=== PATIENT | female | born 1955 ===

== ENCOUNTER 2019-01-22 23:52 | Observation (INO) | payer MEDICAID ==
[2019-01-23] MEDS ORDERED: Nitroglycerin 2% Ointment Foilpak UD TOP STA (00:23)
[2019-01-23] MEDS ORDERED: Aspirin 325 mg EC Tablets PO STA (00:23)
--- NOTE | 2019-01-23 00:24 | C.PDOC ---
History Of Present Illness 63 year old female presents with chest pain since PC [employer]ATION [employer]INE[employer]. Patient states "it happens when my pressure is high". She also reports midsterna/epigastric "burning". Denies any other symptoms. Patient is compliant with her medications. She had similar prior episode 2 months ago, states her HTN medications had to be adjusted. Baseline SBP 115. CP SINCE PC INSTALLATION ENGINEER. "IT HAPPENS WHEN MY PRESSURE IS HIGH". MIDSTERNAL/EPIG "BURNING". NO OTHER ASSOC SX. COMPLIANT W MEDS. SIM PRIOR EPISODE 2 MO AGO, PS HTN MEDS HAD TO BE ADJUSTED. BASELINE SBP 115 EXAM 160/75 CV RRR NEG Time Seen by Provider: 01/23/19 00:11 Chief Complaint (Nursing): High Blood Pressure History Per: Patient History/Exam Limitations: no limitations Onset/Duration Of Symptoms: Hrs Current Symptoms Are (Timing): Still Present Associated Symptoms: denies: Nausea, Dyspnea, Diaphoresis, Syncope Exacerbating Factors: None Alleviating Factors: None Recent travel outside of the [place]: No Past Medical History Reviewed: Historical Data, Nursing Documentation, Vital Signs Vital Signs: Last Vital Signs Temp 98.4 F 01/22/19 23:56 Pulse 80 01/22/19 23:56 Resp 18 01/22/19 23:56 BP 172/77 H 01/22/19 23:56 Pulse Ox 100 01/22/19 23:56 Primary Care Provider: FAMILY PROVIDER,NO - Medical History PMH: HTN Family History: States: Unknown Family Hx - Social History Hx Alcohol Use: No Hx Substance Use: No - Immunization History Hx Tetanus Toxoid Vaccination: No Hx Influenza Vaccination: No Hx Pneumococcal Vaccination: No Review Of Systems Except As Marked, All Systems Reviewed And Found Negative. Cardiovascular: Positive for: Chest Pain Gastrointestinal: Negative for: Nausea, Vomiting Physical Exam - Physical Exam Appears: Non-toxic Skin: Normal Color, Warm Head: Atraumatic, Normacephalic Eye(s): bilateral: Normal Inspection, PERRL, EOMI Oral Mucosa: Moist Neck: Normal, Supple Chest: Symmetrical, No Tenderness Cardiovascular: Rhythm Regular, Other (BP 160/75) Respiratory: Normal Breath Sounds, No Rales, No Rhonchi, No Wheezing Gastrointestinal/Abdominal: Soft, No Tenderness Neurological/Psych: Oriented x3, Normal Speech Gait: Steady ED Course And Treatment ECG: Interpreted By Me, Viewed By Me ECG Rhythm: Sinus Rhythm ECG Interpretation: Normal Rate From EC O2 Sat by Pulse Oximetry: 100 (Room air) Pulse Ox Interpretation: Normal - Radiology CXR: Interpreted by Me CXR Interpretation: Yes: No Acute Disease Progress - Data Reviewed Data Reviewed: Lab, Diagnostic imaging, EKG Medical Decision Making Medical Decision Making: Plan: * EKG * Blood work * CXR * Aspirin * Nitrobid * Nitrostat Disposition Counseled Patient/Family Regarding: Studies Performed, Diagnosis - Disposition Disposition Time: 01:00 Condition: STABLE Forms: Couchsurfing ([place]) - Clinical Impression Clinical Impression: Chest pain - Scribe Statement The provider has reviewed the documentation as recorded by the Scribe Robby eKane All medical record entries made by the Scribe were at my direction and personally dictated by me. I have reviewed the chart and agree that the record accurately reflects my personal performance of the history, physical exam, medical decision making, and the department course for this patient. I have also personally directed, reviewed, and agree with the discharge instructions and disposition. Physician Patient Turnover Patient Signed Over To: Norma Kilgore Handoff Comments: [facility], DISPO
[2019-01-23] MEDS ORDERED: Nitroglycerin 2% Ointment Foilpak UD TOP ONE (00:35)
[2019-01-23 01:13] LABS: BASO # 0.1 K/uL (0.0-0.2); BASO % 0.8 % (0.0-2.0); EOS # 0.2 K/uL (0.0-0.7); EOS % 2.8 % (0.0-4.0); LYMPH # 3.4 K/uL (1.0-4.3); LYMPH % 48.2 % (20.0-40.0); MEAN CELL VOLUME 85.2 fL (81.0-99.0); MEAN CORPUSCULAR HEMOGLOBIN 30.8 pg (27.0-31.0); MEAN CORPUSCULAR HGB CONC 36.1 g/dL (33.0-37.0); MEAN PLATELET VOLUME 7.5 fL (7.2-11.7); MONO % 14.7 % (0.0-10.0); NEUT # 2.3 K/uL (1.8-7.0); NEUT % 33.5 % (50.0-75.0); NRBC % 0.2 % (0.0-2.0); RBC 4.33 Mil/uL (3.80-5.20); RED CELL DISTRIBUTION WIDTH 13.7 % (11.5-14.5)
[2019-01-23 01:24] LABS: HEMOGLOBIN 13.3 g/dL (11.0-16.0)
[2019-01-23 01:31] LABS: ALB/GLOB RATIO 1.3 (1.0-2.1); ALBUMIN 4.7 g/dL (3.5-5.0); ALT/SGPT 22 U/L (9-52); AST/SGOT 49 U/L (14-36); BLOOD UREA NITROGEN 16 mg/dL (7-17); CALCIUM 9.5 mg/dl (8.6-10.4); GFR NON-AFRICAN AMERICAN > 60
[2019-01-23] MEDS ORDERED: Potassium Chloride 20 mEq ER Tab PO STA (02:44)
[2019-01-23] MEDS ORDERED: Potassium Chloride 20 mEq ER Tab PO ONE ×2 (03:09→06:00)
[2019-01-23] MEDS ORDERED: Potassium Chloride 20 mEq 100 ML ONE (03:10)
--- NOTE | 2019-01-23 03:34 | CP.PCM.HP ---
<Solomon Trujillo - Last Filed: 01/23/19 06:10> History of Present Illness - History of Present Illness History of Present Illness: 63F PMHx of HTN presents with a 1 days history of instense burning Left sided non reproducible, non radiating chest pain. Happened this morning, worst she has ever felt, took a plavix and come to the ER. Pt says this happens sometimes when her BP goes high. Pt just moved here from [facility] where she used to follow up with a doctor who prescribed her Plavix 75mg daily and Gina D. Pt says this ch4est pain happens about 3x a year, and always feels like heat/burning. Pt also reports epigastric discomfort that is chronic and worse at nightime. Pt has had HTN for a very long time. Pt has improved greatly since ED gave nitro. ROS POS+ CP, HTN, epigastric pain, leg pain chronic, recent travel (flew here from [place]) NEG- SOB, [place], [place], [place], Radiating pains, syncope PMHx: HTN PSx: denies FH: Mom HTN SocHx: denies ETOH, Smoking, drugs Allergies: denies Home Rx Gina D Plavix 75mg daily Present on Admission - Present on Admission Any Indicators Present on Admission: No Review of Systems - Review of Systems All systems: reviewed and no additional remarkable complaints except (as per HPI) Past Patient History - Past Social History Smoking Status: Former Smoker - CARDIAC Hx Hypertension: Yes - PSYCHIATRIC Hx Substance Use: No - SURGICAL HISTORY Hx Breast Biopsy: Yes Other/Comment: Bilateral breast cyst removal 1992 - ANESTHESIA Hx Anesthesia: Yes Hx Anesthesia Reactions: No Hx Malignant Hyperthermia: No Meds Allergies/Adverse Reactions: Allergies Allergy/AdvReac Type Severity Reaction Status Date / Time No Known Allergies Allergy Verified 01/23/19 00:06 Physical Exam - Constitutional Appears: Well, No Acute Distress - Head Exam Head Exam: ATRAUMATIC - Eye Exam Eye Exam: EOMI, Normal appearance, PERRL - ENT Exam ENT Exam: Mucous Membranes Moist - Neck Exam Neck exam: Negative for: Thyromegaly - Respiratory Exam Respiratory Exam: Clear to Auscultation Bilateral, NORMAL BREATHING PATTERN - Cardiovascular Exam Cardiovascular Exam: RRR, +S1, +S2 - GI/Abdominal Exam GI & Abdominal Exam: Normal Bowel Sounds, Soft - Rectal Exam Rectal Exam: NORMAL INSPECTION - Neurological Exam Neurological exam: Alert, CN II-XII Intact, Oriented x3 - Psychiatric Exam Psychiatric exam: Normal Affect, Normal Mood - Skin Skin Exam: Dry, Normal Color, Warm Results - Vital Signs Recent Vital Signs: Last Vital Signs Temp 98.4 F 01/22/19 23:56 Pulse 98 H 01/23/19 03:18 Resp 18 01/23/19 03:18 BP 130/67 01/23/19 03:18 Pulse Ox 99 01/23/19 03:18 - Labs Result Diagrams: 01/23/19 01:03 01/23/19 02:14 Labs: Laboratory Results - last 24 hr 01/23/19 01/23/19 01/23/19 01:03 01:03 02:14 WBC 7.0 RBC 4.33 Hgb 13.3 Hct 36.9 MCV 85.2 MCH 30.8 MCHC 36.1 RDW 13.7 Plt Count 417 H MPV 7.5 Neut % (Auto) 33.5 L Lymph % (Auto) 48.2 H [place] % (Auto) 14.7 H Eos % (Auto) 2.8 Baso % (Auto) 0.8 Neut # (Auto) 2.3 Lymph # (Auto) 3.4 [place] # (Auto) 1.0 H Eos # (Auto) 0.2 Baso # (Auto) 0.1 Sodium 137 Potassium 2.5 L* 2.6 L Chloride 91 L Carbon Dioxide 32 H Anion Gap 16 BUN 16 Creatinine 0.6 L Est GFR ( Amer) > 60 Est GFR (Non-Af Amer) > 60 Random Glucose 107 H Calcium 9.5 Total Bilirubin 0.4 AST 49 H ALT 22 Alkaline Phosphatase 150 H Troponin I < 0.0120 Total Protein 8.3 Albumin 4.7 Globulin 3.6 Albumin/Globulin Ratio 1.3 Assessment & Plan - Assessment and Plan (Free Text) Assessment: 63F PMHx HTN admitted for chest pain, r/o ACS Chest Pain-Acute first ROMIs neg, f/u next ROMIs x2 f/u A1c, TSH ASA 81 daily Plavix 75mg daily Lisinopril 5mg daily Nitrobid PRN for chest pain HTN-Acute on chronic Lisinopril 5mg daily f/u am Labs Monitor Epigastric Pain-Acute Maalox PTX 40 PPx Heparin 5000u q8 ASA Plavix PTX HHD CK PGY1 <Devin Paul - Last Filed: 01/23/19 06:24> Results - Vital Signs Recent Vital Signs: Last Vital Signs Temp 97.8 F 01/23/19 03:59 Pulse 67 01/23/19 04:24 Resp 20 01/23/19 03:59 BP 139/77 01/23/19 03:59 Pulse Ox 99 01/23/19 03:59 - Labs Result Diagrams: 01/23/19 01:03 01/23/19 02:14 Labs: Laboratory Results - last 24 hr 01/23/19 01/23/19 01/23/19 01:03 01:03 02:14 WBC 7.0 RBC 4.33 Hgb 13.3 Hct 36.9 MCV 85.2 MCH 30.8 MCHC 36.1 RDW 13.7 Plt Count 417 H MPV 7.5 Neut % (Auto) 33.5 L Lymph % (Auto) 48.2 H [place] % (Auto) 14.7 H Eos % (Auto) 2.8 Baso % (Auto) 0.8 Neut # (Auto) 2.3 Lymph # (Auto) 3.4 [place] # (Auto) 1.0 H Eos # (Auto) 0.2 Baso # (Auto) 0.1 Sodium 137 Potassium 2.5 L* 2.6 L Chloride 91 L Carbon Dioxide 32 H Anion Gap 16 BUN 16 Creatinine 0.6 L Est GFR ( Amer) > 60 Est GFR (Non-Af Amer) > 60 Random Glucose 107 H Calcium 9.5 Total Bilirubin 0.4 AST 49 H ALT 22 Alkaline Phosphatase 150 H Troponin I < 0.0120 Total Protein 8.3 Albumin 4.7 Globulin 3.6 Albumin/Globulin Ratio 1.3 Assessment & Plan - Date & Time Date: 01/23/19 (I have seen and examined the patient. I agree with the findings and plan of care as documented by Dr. Trujillo. Patient with chest pain. ROMIx3 with EKG. Aspirin and Statin. History of hypertension. Continue home meds. Monitor for acute changes.) Time: 05:22 Attending/Attestation - Attestation I have personally seen and examined this patient.: Yes I have fully participated in the care of the patient.: Yes I have reviewed all pertinent clinical information: Yes
[2019-01-23] MEDS ORDERED: Aluminum Hydroxide/Magnesium Hydroxide Susp (30 mL) PO SCH (04:15)
[2019-01-23 07:25] LABS: CK-MB 1.11 ng/mL (0.0-3.38)
[2019-01-23 08:12] LABS: ALB/GLOB RATIO 1.2 (1.0-2.1); ALBUMIN 3.9 g/dL (3.5-5.0); ALT/SGPT 25 U/L (9-52); AST/SGOT 34 U/L (14-36); BLOOD UREA NITROGEN 11 mg/dL (7-17); CALCIUM 9.2 mg/dl (8.6-10.4); GFR NON-AFRICAN AMERICAN > 60
[2019-01-23] MEDS ORDERED: Nitroglycerin 0.1 mg/hr Top Patch TD SCH (10:00)
--- NOTE | 2019-01-23 10:28 | RAD ---
Chest x-ray single frontal view HISTORY: Chest pain. COMPARISON: None available. FINDINGS: No focal infiltrate or effusion. Heart size within normal limits. Impression: No focal infiltrate or effusion.
[2019-01-23 14:10] LABS: CK-MB 0.91 ng/mL (0.0-3.38)
--- NOTE | 2019-01-23 15:02 | CP.PCM.DIS ---
<Kj Mena - Last Filed: 01/23/19 17:57> Provider - Provider Date of Admission: 01/23/19 03:03 Attending physician: Josr Zhou DO Primary care physician: none Consults: none Time Spent in preparation of Discharge (in minutes): 35 Diagnosis - Discharge Diagnosis (1) Hypertension Status: Chronic (2) Hypokalemia Status: Resolved (3) Chest pain Status: Resolved Hospital Course - Lab Results Lab Results: Most Recent Lab Values WBC 7.0 K/uL (4.8-10.8) 01/23/19 01:03 RBC 4.33 Mil/uL (3.80-5.20) 01/23/19 01:03 Hgb 13.3 g/dL (11.0-16.0) 01/23/19 01:03 Hct 36.9 % (34.0-47.0) 01/23/19 01:03 MCV 85.2 fL (81.0-99.0) 01/23/19 01:03 MCH 30.8 pg (27.0-31.0) 01/23/19 01:03 MCHC 36.1 g/dL (33.0-37.0) 01/23/19 01:03 RDW 13.7 % (11.5-14.5) 01/23/19 01:03 Plt Count 417 K/uL (130-400) H 01/23/19 01:03 MPV 7.5 fL (7.2-11.7) 01/23/19 01:03 Neut % (Auto) 33.5 % (50.0-75.0) L 01/23/19 01:03 Lymph % (Auto) 48.2 % (20.0-40.0) H 01/23/19 01:03 [place] % (Auto) 14.7 % (0.0-10.0) H 01/23/19 01:03 Eos % (Auto) 2.8 % (0.0-4.0) 01/23/19 01:03 Baso % (Auto) 0.8 % (0.0-2.0) 01/23/19 01:03 Neut # (Auto) 2.3 K/uL (1.8-7.0) 01/23/19 01:03 Lymph # (Auto) 3.4 K/uL (1.0-4.3) 01/23/19 01:03 [place] # (Auto) 1.0 K/uL (0.0-0.8) H 01/23/19 01:03 Eos # (Auto) 0.2 K/uL (0.0-0.7) 01/23/19 01:03 Baso # (Auto) 0.1 K/uL (0.0-0.2) 01/23/19 01:03 Sodium 138 mmol/L (132-148) 01/23/19 07:55 Potassium 3.7 mmol/L (3.6-5.2) 01/23/19 07:55 Chloride 101 mmol/L (98-107) 01/23/19 07:55 Carbon Dioxide 29 mmol/L (22-30) 01/23/19 07:55 Anion Gap 11 (10-20) 01/23/19 07:55 BUN 11 mg/dL (7-17) 01/23/19 07:55 Creatinine 0.5 mg/dL (0.7-1.2) L 01/23/19 07:55 Est GFR ( Amer) > 60 01/23/19 07:55 Est GFR (Non-Af Amer) > 60 01/23/19 07:55 Random Glucose 91 mg/dL (65-105) 01/23/19 07:55 Calcium 9.2 mg/dl (8.6-10.4) 01/23/19 07:55 Total Bilirubin 0.4 mg/dL (0.2-1.3) 01/23/19 07:55 AST 34 U/L (14-36) 01/23/19 07:55 ALT 25 U/L (9-52) 01/23/19 07:55 Alkaline Phosphatase 105 U/L (38-126) 01/23/19 07:55 Total Creatine Kinase 58 U/L (30-135) 01/23/19 13:38 CK-MB (Mass) 0.91 ng/mL (0.0-3.38) 01/23/19 13:38 Troponin I < 0.0120 ng/mL (0.00-0.120) 01/23/19 13:38 Total Protein 7.3 g/dL (6.3-8.3) 01/23/19 07:55 Albumin 3.9 g/dL (3.5-5.0) 01/23/19 07:55 Globulin 3.4 gm/dL (2.2-3.9) 01/23/19 07:55 Albumin/Globulin Ratio 1.2 (1.0-2.1) 01/23/19 07:55 - Hospital Course Hospital Course: HPI at time of admission: "63F PMHx of HTN presents with a 1 days history of instense burning Left sided non reproducible, non radiating chest pain. Happened this morning, worst she has ever felt, took a plavix and come to the ER. Pt says this happens sometimes when her BP goes high. Pt just moved here from [facility] where she used to follow up with a doctor who prescribed her Plavix 75mg daily and Gina D. Pt says this ch4est pain happens about 3x a year, and always feels like heat/burning. Pt also reports epigastric discomfort that is chronic and worse at nightime. Pt has had HTN for a very long time. Pt has improved greatly since ED gave nitro." Hospital Course: Pertinent imaging: EKG NSR, no acute St-t wave changes. CXR negative for acute findings. Pt was admitted for acute chest pain r/o ACS. YING neg x3. Chest pain resolved on day of discharge and pt was able to ambulate around unit without concerns. BP normalized, pt was sent home on original dose of Lisinopril 5 mg daily. Will need to be trended in clinic to see if pt needs increased dose of her prescription. Pt also presented with Hypokalemia which was repleted and subsequently normalized. Pt was d/c to home in stable condition on 01/23/19 and instructed to f/u with [facility], to establish care on January 31, at 2:00 pm. Pt was given scripts for ASA, Plavix, and Lisinopril. This is a summary of the hospital course. For further details, please refer to the hospital EMR. Discharge Exam - Head Exam Head Exam: ATRAUMATIC - Eye Exam Eye Exam: EOMI, Normal appearance, PERRL - ENT Exam ENT Exam: Mucous Membranes Moist - Respiratory Exam Respiratory Exam: Clear to PA & Lateral, NORMAL BREATHING PATTERN, UNREMARKABLE - Cardiovascular Exam Cardiovascular Exam: REGULAR RHYTHM, +S1, +S2. absent: Gallop, Rubs, Systolic Murmur - GI/Abdominal Exam GI & Abdominal Exam: Normal Bowel Sounds, Soft, Unremarkable. absent: Tenderness - Extremities Exam Extremities exam: normal capillary refill, normal inspection, pedal pulses present - Neurological Exam Neurological exam: Alert, CN II-XII Intact, Normal Gait, Oriented x3, Reflexes Normal - Skin Skin Exam: Dry, Intact, Normal Color, Warm Discharge Plan - Discharge Medications Prescriptions: Aspirin [Aspirin Chewable] 81 mg PO DAILY #30 chew Clopidogrel [Plavix] 75 mg PO DAILY #30 tab Lisinopril [Zestril] 5 mg PO DAILY #30 tab - Follow Up Plan Condition: STABLE Disposition: HOME/ ROUTINE Instructions: Heart Healthy Diet, Chest Pain (DC), Heart Disease in Women (DC), Aspirin, Clopidogrel, Lisinopril Additional Instructions: Por favor, tiene sandy netta en la clinica de "[facility]" el seis de elsa a las dos en la tarde. Llega a treinta minutos antes de la netta para escribir los papeles. Fadumo las medicinas en la casa a prescribe. Tiene symptomas en el futuro, llama a la doctor primaria o va al departamento de la emergencia de cerca. Referrals: Ct Valencia MD [Staff Provider] - <Josr Zhou - Last Filed: 01/23/19 18:18> Provider - Provider Date of Admission: 01/23/19 03:03 Attending physician: Josr Zhou DO Hospital Course - Lab Results Lab Results: Most Recent Lab Values WBC 7.0 K/uL (4.8-10.8) 01/23/19 01:03 RBC 4.33 Mil/uL (3.80-5.20) 01/23/19 01:03 Hgb 13.3 g/dL (11.0-16.0) 01/23/19 01:03 Hct 36.9 % (34.0-47.0) 01/23/19 01:03 MCV 85.2 fL (81.0-99.0) 01/23/19 01:03 MCH 30.8 pg (27.0-31.0) 01/23/19 01:03 MCHC 36.1 g/dL (33.0-37.0) 01/23/19 01:03 RDW 13.7 % (11.5-14.5) 01/23/19 01:03 Plt Count 417 K/uL (130-400) H 01/23/19 01:03 MPV 7.5 fL (7.2-11.7) 01/23/19 01:03 Neut % (Auto) 33.5 % (50.0-75.0) L 01/23/19 01:03 Lymph % (Auto) 48.2 % (20.0-40.0) H 01/23/19 01:03 [place] % (Auto) 14.7 % (0.0-10.0) H 01/23/19 01:03 Eos % (Auto) 2.8 % (0.0-4.0) 01/23/19 01:03 Baso % (Auto) 0.8 % (0.0-2.0) 01/23/19 01:03 Neut # (Auto) 2.3 K/uL (1.8-7.0) 01/23/19 01:03 Lymph # (Auto) 3.4 K/uL (1.0-4.3) 01/23/19 01:03 [place] # (Auto) 1.0 K/uL (0.0-0.8) H 01/23/19 01:03 Eos # (Auto) 0.2 K/uL (0.0-0.7) 01/23/19 01:03 Baso # (Auto) 0.1 K/uL (0.0-0.2) 01/23/19 01:03 Sodium 138 mmol/L (132-148) 01/23/19 07:55 Potassium 3.7 mmol/L (3.6-5.2) 01/23/19 07:55 Chloride 101 mmol/L (98-107) 01/23/19 07:55 Carbon Dioxide 29 mmol/L (22-30) 01/23/19 07:55 Anion Gap 11 (10-20) 01/23/19 07:55 BUN 11 mg/dL (7-17) 01/23/19 07:55 Creatinine 0.5 mg/dL (0.7-1.2) L 01/23/19 07:55 Est GFR ( Amer) > 60 01/23/19 07:55 Est GFR (Non-Af Amer) > 60 01/23/19 07:55 Random Glucose 91 mg/dL (65-105) 01/23/19 07:55 Calcium 9.2 mg/dl (8.6-10.4) 01/23/19 07:55 Total Bilirubin 0.4 mg/dL (0.2-1.3) 01/23/19 07:55 AST 34 U/L (14-36) 01/23/19 07:55 ALT 25 U/L (9-52) 01/23/19 07:55 Alkaline Phosphatase 105 U/L (38-126) 01/23/19 07:55 Total Creatine Kinase 58 U/L (30-135) 01/23/19 13:38 CK-MB (Mass) 0.91 ng/mL (0.0-3.38) 01/23/19 13:38 Troponin I < 0.0120 ng/mL (0.00-0.120) 01/23/19 13:38 Total Protein 7.3 g/dL (6.3-8.3) 01/23/19 07:55 Albumin 3.9 g/dL (3.5-5.0) 01/23/19 07:55 Globulin 3.4 gm/dL (2.2-3.9) 01/23/19 07:55 Albumin/Globulin Ratio 1.2 (1.0-2.1) 01/23/19 07:55 Attending/Attestation - Attestation I have personally seen and examined this patient.: Yes I have fully participated in the care of the patient.: Yes I have reviewed all pertinent clinical information, including history, physical exam and plan: Yes Notes (Text): 01/23/19 18:16 Medical attending: Patient was seen and examined by me. Agree with the above note by the resident The patient was not in any acute distress when we came and saw her. We also walked her around in the hallway and she did so very well without developing chest pain or shortness of breath The patient's troponins negative x3 and also EKG appear stable Josr Zhou
[2019-01-23 15:52] VITALS: RESP 20
[2019-01-23 15:54] VITALS: BP 101/59; PULSE 65; TEMP 98.3; O2SAT 98
== END 2019-01-23 16:11 | disposition home or self-care (01) ==
LOC: C.ER 23:52 → C.5S 01-23 03:03
PROVIDERS: ADMIT Hospitalist; ATTEND Hospitalist
DX: I10 Essential (primary) hypertension (principal); Z79.02 Long term (current) use of antithrombotics/antiplatelets; Z79.899 Other long term (current) drug therapy; Z82.49 Family history of ischemic heart disease and other diseases of the circulatory system; Z87.891 Personal history of nicotine dependence; E87.6 Hypokalemia
CPT/HCPCS: 36415; 71045; 80053; 84132; 84484; 85025; 96365; 96366; C9113; G0378; J1644; J3480